=== PATIENT | female | born 1970 | race Caucasian/White ===

== ENCOUNTER 2017-05-08 17:48 | Emergency (ER) | payer OTHER ==
[~2017-05-08] VITALS: Ht 172.7 cm; Wt 77.5 kg
[~2017-05-08 17:48] MED LIST: ARIMIDEX1 MG PO; CELEBREX100 MG PO; Levothroid,Synthroid PO; OS CAL PO; PERCOCET 5-3251 EACH PO; REGLAN5 MG PO; TOPAMAX50 MG PO; TRAMADOL HCL50 MG PO; Vicodin,Lortab 5/500 PO; WELLBUTRIN SR150 MG PO
[2017-05-08] MEDS ORDERED: MYCOSTATIN 100,60 ML PO (19:08)
[2017-05-08 19:20] VITALS: BP 143/96
== END 2017-05-08 19:21 | disposition home or self-care (01) ==
LOC: EME 17:48
DX: B37.0 Candidal stomatitis (principal); Z98.890 Other specified postprocedural states; Z85.3 Personal history of malignant neoplasm of breast; Z88.0 Allergy status to penicillin; Z88.5 Allergy status to narcotic agent
CPT/HCPCS: 99281; 99283

== ENCOUNTER 2017-11-14 17:02 | Emergency (ER) | payer BC ==
[~2017-11-14] VITALS: Ht 172.7 cm; Wt 82.3 kg
[~2017-11-14 17:02] MED LIST changes: +MYCOSTATIN 100,60 ML PO
[2017-11-14 17:12] VITALS: BP 136/84
[2017-11-14] MEDS ORDERED: TOPIRAMATE50 MG PO (17:34)
[2017-11-14] MEDS ORDERED: MELOXICAM15 MG PO (17:35)
[2017-11-14] MEDS ORDERED: SULFACETAMIDE S15 ML LEFT EYE (17:35)
[2017-11-14] MEDS ORDERED: PANTOPRAZOLE SO40 MG PO (17:36)
[2017-11-14] MEDS ORDERED: ANASTROZOLE1 MG PO (17:36)
== END 2017-11-14 18:37 | disposition home or self-care (01) ==
LOC: EME 17:02
PROC: 0HQGXZZ Repair Left Hand Skin, External Approach (ICD-10-PCS; principal; 2017-11-14)
DX: S61.219A Laceration without foreign body of unspecified finger without damage to nail, initial encounter (principal); W26.8XXA Contact with other sharp object(s), not elsewhere classified, initial encounter; Z88.0 Allergy status to penicillin; Z88.5 Allergy status to narcotic agent
CPT/HCPCS: 99281; 99284